=== PATIENT | female | born 1995 | race Hispanic/Latino ===

== ENCOUNTER → 2021-07-17 | Outpatient (CLI) | payer OTHER | END | disposition home or self-care (01) | LOC: LAB 21:13 | PROVIDERS: ATTEND Obstetrics & Gynecology | DX: Z36.0 Encounter for antenatal screening for chromosomal anomalies (principal) | CPT/HCPCS: 36415; 82105; 86787 ==

== ENCOUNTER 2021-09-04 07:33 | Emergency (ER) | payer OTHER ==
[~2021-09-04] VITALS: Ht 154.9 cm; Wt 81.6 kg
[2021-09-04 07:34] VITALS: BP 127/78
[2021-09-07 07:17] LABS: HEPATITIS C VIRUS ANTIBODY 0.1 s/co ratio (0.0-0.9)
== END 2021-09-04 08:10 | disposition home or self-care (01) ==
LOC: EDH 07:33
DX: S59.912A Unspecified injury of left forearm, initial encounter (principal); Z98.890 Other specified postprocedural states; W46.0XXA Contact with hypodermic needle, initial encounter; Y93.89 Activity, other specified; Y92.89 Other specified places as the place of occurrence of the external cause; Y99.8 Other external cause status
CPT/HCPCS: 36415; 86701; 86704; 86706; 86804; 87390; 87522